=== PATIENT | female | born 2000 | race Caucasian/White ===

== ENCOUNTER → 2024-08-24 17:05 | Outpatient (CLI) | payer SELFPAY ==
--- NOTE | 2024-08-24 17:08 | DI.MRI.S_ITS ---
PROCEDURE: MR KNEE LT WO CON INDICATIONS: acute injury TECHNIQUE: Noncontrast sagittal PD fast spin echo and T2 fast spin echo with fat saturation, sagittal 3-D FLASH with fat saturation; coronal T1 spin echo and PD fast spin echo with fat saturation, and axial PD fast spin echo with fat saturation through the knee. COMPARISON: None. FINDINGS: Image quality: Excellent. Bones: Marrow edema is present at the posterior-lateral nonweightbearing femoral condyle (8/8), the periphery of the anterior weight-bearing medial tibial plateau (10/7) and the posterior medial-central tibial plateau (13/20; 10/13). There is a faint T1 hypointense subarticular fracture line at the medial-central tibial plateau (12/19). There is no other acute fracture or dislocation. Joints: There is a small knee joint effusion. There is no significant knee osteoarthritis. Valle's cyst: None, although there is mild perifascial and subcutaneous fluid along the posterior border of the medial gastrocnemius musculature (8/24). Menisci: The medial meniscus is normal. The lateral meniscus is normal. The posterior root attachments are normal. There is a full-thickness tear of the medial meniscofemoral ligament (13/18) without meniscal body extrusion. Cruciate ligaments: There is mild intermediate signal within the anterior cruciate ligament, although the fiber orientation is preserved. The posterior cruciate ligament is normal. Collateral ligaments: The medial collateral ligament complex is otherwise normal. The lateral collateral ligament complex is normal. Popliteus Muscle/Tendon: The popliteus muscle and tendon are normal. Extensor mechanism: The quadriceps tendon is normal. The patellar tendon is normal. The medial and lateral patellar retinacular attachments are normal. Articular cartilage: There is no significant articular cartilage defect. Other: No other acute findings. IMPRESSION: 1. Full-thickness tear of the medial meniscofemoral ligament/deep layer of the medial collateral ligament complex. No underlying meniscal tear or meniscal body extrusion at this time. 2. Subacute, nondisplaced fracture with corresponding marrow edema at the subarticular medial-central tibial plateau. 3. Mild sprain of the anterior cruciate ligament. No full-thickness tear. 4. Microtrabecular fractures/marrow contusions of the posterior-lateral femoral condyle and anterior weight-bearing medial tibial plateau. 5. Likely traumatic contusion versus sequelae of a recently ruptured Valle's cyst at the popliteal fossa. Dictated by: Karlos Williamson M.D. on 08/27/2024 at 9:37 Approved by: Karlos Williamson M.D. on 08/27/2024 at 9:49
== END ==
PROVIDERS: PCP Physician Assistant Medical; Referring Provider Physician Assistant Medical; Visit Provider Physician Assistant Medical
DX: S82.145A Nondisplaced bicondylar fracture of left tibia, initial encounter for closed fracture (principal); S83.8X2A Sprain of other specified parts of left knee, initial encounter; S83.512A Sprain of anterior cruciate ligament of left knee, initial encounter; M25.462 Effusion, left knee; X58.XXXA Exposure to other specified factors, initial encounter
CPT/HCPCS: 73721